=== PATIENT | male | born 1985 | race Caucasian/White ===

== ENCOUNTER 2019-05-04 08:24 | Emergency (ER) | payer SELFPAY ==
[2019-05-04 08:28] VITALS: BP 124/78
[2019-05-04] MEDS ORDERED: ONDANSETRON 4 MG TAB.RAPDIS PO ONE (08:48)
[2019-05-04 09:11] LABS: ABSOLUTE EOSINOPHILS # (AUTO) 0.3 10^3/uL (0.0-0.6); ABSOLUTE LYMPHOCYTES (AUTO) 1.3 10^3/uL (0.5-4.7); ABSOLUTE MONOCYTES (AUTO) 0.4 10^3/uL (0.1-1.4); ABSOLUTE NEUT (AUTO) 2.8 10^3/uL (1.7-8.2); BASOPHILS % (AUTO) 0.9 % (0-2); EOSINOPHILS % (AUTO) 5.4 % (0-6); HEMATOCRIT 42.3 % (37.9-51.0); HEMOGLOBIN 14.5 g/dL (13.5-17.0); LYMPHOCYTES % (AUTO) 26.9 % (13-45); MEAN CORPUSCULAR HEMOGLOBIN 31.4 pg (27.0-33.4); MEAN CORPUSCULAR HGB CONC 34.2 g/dL (32.0-36.0); MEAN CORPUSCULAR VOLUME 92 fl (80-97); MONOCYTES % (AUTO) 8.9 % (3-13); PLATELET COUNT 188 10^3/uL (150-450); RED BLOOD COUNT 4.61 10^6/uL (4.35-5.55); RED CELL DISTRIBUTION WIDTH 12.8 % (11.5-14.0); SEGMENTED NEUTROPHILS % (AUTO) 57.9 % (42-78); TOTAL CELLS COUNTED % (AUTO) 100 %; WHITE BLOOD COUNT 4.9 10^3/uL (4.0-10.5)
[2019-05-04 09:35] LABS: ALBUMIN 4.1 g/dL (3.5-5.0); ALKALINE PHOSPHATASE 39 U/L (38-126); ANION GAP 8 (5-19); ASPARTATE AMINO TRANSFERASE 22 U/L (17-59); BILIRUBIN,DIRECT 0.2 mg/dL (0.0-0.4); BILIRUBIN,TOTAL 0.4 mg/dL (0.2-1.3); BLOOD UREA NITROGEN 13 mg/dL (7-20); CALCIUM 8.9 mg/dL (8.4-10.2); CARBON DIOXIDE 23 mmol/L (22-30); CHLORIDE 108 mmol/L (98-107); GLUCOSE 101 mg/dL (75-110); POTASSIUM 4.5 mmol/L (3.6-5.0); TOTAL PROTEIN 6.7 g/dL (6.3-8.2)
--- NOTE | 2019-05-04 12:04 | RADIOLOGY REPORT (SQ) ---
EXAM DESCRIPTION: U/S ABDOMEN LIMITED W/O DOP COMPLETED DATE/TIME: 05/04/2019 11:29 am REASON FOR STUDY: ruq pain COMPARISON: None. TECHNIQUE: Dynamic and static grayscale images acquired of the abdomen and recorded on PACS. Additio nal selected color Doppler and spectral images recorded. LIMITATIONS: None. FINDINGS: PANCREAS: No masses. Visualized pancreatic duct normal caliber. LIVER: Diffuse fatty infiltration of the liver. 16.2 cm. No masses. LIVER VASCULATURE: Normal directional flow of the main portal vein and hepatic veins. GALLBLADDER: No stones. Normal wall thickness. No pericholecystic fluid. ULTRASOUND-DETECTED SHERMAN'S SIGN: Negative. INTRAHEPATIC DUCTS AND COMMON DUCT: CBD and intrahepatic ducts normal caliber. No filling defects. INFERIOR VENA CAVA: Normal flow. AORTA: No aneurysm. RIGHT KIDNEY: Normal size. Normal echogenicity. No solid or suspicious masses. No hydronephrosis. No calcifications. PERITONEAL AND RIGHT PLEURAL SPACE: No ascites or effusions. OTHER: No other significant findings. IMPRESSION: Fatty liver. No other significant finding. TECHNICAL DOCUMENTATION: JOB ID: [id number]- All Rights Reserved Reading location - IP/workstation name: [email or web address]
--- NOTE | 2019-05-04 12:12 | ER Document Report ---
Entered by GHADA PICKERING SCRIBE 05/04/19 0901 Acting as scribe for:POLA JACKSON MD ED GI/ - General Chief Complaint: Upper Abdominal Pain Stated Complaint: COLD Time Seen by Provider: 05/04/19 08:47 Mode of Arrival: Ambulatory Information source: Patient Notes: 34-year-old male who presents to the emergency department today with complaints of right upper quadrant abdominal pain with associated vomiting and diarrhea. Patient states he had similar symptoms around x1 year ago and he was told he had a "bacterial intestinal infection". Patient does admit to heavy EtOH usage, stating he drinks at least 8 beers a night. Patient denies any radiation of his pain, cough, nasal congestion, or sick contacts. TRAVEL OUTSIDE OF THE [place] IN LAST 30 DAYS: No - Related Data Allergies/Adverse Reactions: No Known Allergies Allergy (Verified 05/04/19 08:25) Past Medical History - General Information source: Patient - Social History Smoking Status: Unknown if Ever Smoked Cigarette use (# per day): No Frequency of alcohol use: None Drug Abuse: None Lives with: Family Family History: Reviewed & Not Pertinent - Medical History Medical History: Negative Surgical Hx: Negative Review of Systems - Review of Systems Constitutional: No symptoms reported EENT: denies: Nose congestion Cardiovascular: No symptoms reported Respiratory: denies: Cough Gastrointestinal: See HPI, Abdominal pain, Diarrhea, Vomiting Genitourinary: No symptoms reported Male Genitourinary: No symptoms reported Musculoskeletal: No symptoms reported Skin: No symptoms reported Hematologic/Lymphatic: No symptoms reported Neurological/Psychological: No symptoms reported -: Yes All other systems reviewed and negative Physical Exam - Vital signs Vitals: Temp Pulse Resp BP Pulse Ox 97.9 F 77 16 124/78 97 05/04/19 08:27 05/04/19 08:27 05/04/19 08:27 05/04/19 08:27 05/04/19 08:27 - Notes Notes: Physical Exam: General: Alert, appears well. HEENT: Normocephalic. Atraumatic. PERRL. Extraocular movements intact. Oropharynx clear. Neck: Supple. Non-tender. Respiratory: No respiratory distress. Clear and equal breath sounds bilaterally. Cardiovascular: Regular rate and rhythm. Abdominal: Right upper quadrant tenderness with palpation, no right lower quadrant tenderness with palpation. No distension. Normal Bowel Sounds. Back: Non-tender. No deformity or step off. Extremities: Moves all four extremities. Upper extremities: Normal inspection. Normal ROM. Lower extremities: Normal inspection. No edema. Normal ROM. Neurological: Normal cognition. AAOx4. Normal speech. Psychological: Normal affect. Normal Mood. Skin: Warm. Dry. Normal color. Course - Re-evaluation Re-evalutation: 05/04/19 12:09 Patient shows evidence of fatty liver on ultrasound otherwise no concerning findings and labs within normal limits are nonsignificant. Discussed with kimberly ent alcohol cessation as he states he drinks approximate 8 drinks a day. Will provide nausea medications as well as return precautions. - Vital Signs Vital signs: Temp Pulse Resp BP Pulse Ox 97.9 F 77 16 124/78 97 05/04/19 08:27 05/04/19 08:27 05/04/19 08:27 05/04/19 08:27 05/04/19 08:27 - Laboratory Result Diagrams: 05/04/19 08:59 05/04/19 08:59 Laboratory results interpreted by me: 05/04/19 08:59 Chloride 108 H Discharge - Discharge Clinical Impression: Fatty liver, Right upper quadrant pain Condition: Good Disposition: HOME, SELF-CARE Instructions: Low-Fat Diet ([facility]), Abdominal Pain ([facility]) Prescriptions: Ondansetron [Zofran Odt 4 mg Tablet] 1 tab PO ASDIR PRN #15 tab.rapdis PRN Reason: For Nausea/Vomiting Forms: Return to Work I personally performed the services described in the documentation, reviewed and edited the documentation which was dictated to the scribe in my presence, and it accurately records my words and actions.
== END 2019-05-04 12:39 | disposition home or self-care (01) ==
LOC: ER 08:24
DX: K76.0 Fatty (change of) liver, not elsewhere classified (principal); R10.11 Right upper quadrant pain; R11.10 Vomiting, unspecified; R19.7 Diarrhea, unspecified; F10.10 Alcohol abuse, uncomplicated
CPT/HCPCS: 99284; 36415; 83690; 83735; 85025; 80053; 76705; S0119